=== PATIENT | female | born 1970 | race Caucasian/White ===

== ENCOUNTER 2018-12-10 08:46 | Day surgery (SDC) | payer BC ==
[2018-12-10] MEDS ORDERED: DIPRIVAN 200 MG/20 ML IV ONE (08:47)
[2018-12-10] MEDS ORDERED: TETRACAINE 0.5% STERI-UNIT SOL OP ONE ×2 (09:00)
[2018-12-10] MEDS ORDERED: Ak-Dilate OPHTHALMIC*** 1.065 ML, Cyclogyl 1% OPHTH SOL 5 ML 1.065 ML, GATIFLOXACIN 0.5... OP ONE ×4 (09:00)
[2018-12-10] MEDS ORDERED: BETADINE 5% OPHTHALMIC 30 ML OP ONE (09:00)
[2018-12-10] MEDS ORDERED: LIDOCAINE HCL 1% AMPUL 5 ML IJ ONE (09:00)
[2018-12-10] MEDS ORDERED: Epinephrine Preservative Free 1 MG/ML INTRAOP ONE (09:00)
[2018-12-10] MEDS ORDERED: BSS 500 ML, Fortaz/Tazicef 1 GM** 0.2 G IO ONE ×2 (09:00)
[2018-12-10] MEDS ORDERED: Lactated Ringers 1,000 ML IV SCH ×2 (09:00→09:30)
[2018-12-10] MEDS ORDERED: ACETAZOLAMIDE 250 MG TABLET PO ONE (09:15)
[2018-12-10] MEDS ORDERED: Zofran 4 MG/2 ML VIAL IV PRN (09:15)
[2018-12-10] MEDS ORDERED: Lactated Ringers 1,000 ML IV ONE (09:22)
[2018-12-10] MEDS ORDERED: TYLENOL 325 MG PO STA (12:36)
[2018-12-10] MEDS ORDERED: TYLENOL 325 MG ONE (12:39)
[2018-12-10 13:03] VITALS: BP 144/84; PULSE 57; O2SAT 94
--- NOTE | 2018-12-10 13:55 | OP ---
DATE/TIME OF OPERATION: 12/10/2018 1151 TIME DICTATED: 1241 PREOPERATIVE DIAGNOSIS: Senile cataract of left eye. POSTOPERATIVE DIAGNOSIS: Senile cataract of left eye. SURGEON: Shadi Gutierrez MD SOLDER TECHNICIAN: None. OPERATION: Cataract extraction of left eye with an intraocular lens implant. STANDARD __X___ COMPLEX ANESTHESIA: MAC. 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 The anesthesiologist or the nurse hydraulic assembler was utilized to monitor and regulate the intravenous sedation of the patient, so the patient was cooperative, relaxed, and comfortable). Topical anesthesia using Tetracaine eye drops together with intra cameral anesthesia using Lidocaine 1% MPF. The nurse was utilized to monitor the patient. ANESTHESIA PROVIDER: Steve Sterling CRNA. COMPLICATIONS: None. BLOOD LOSS: None. INDICATIONS: The patient is undergoing cataract surgery in the hopes of eliminating the visual complaints and difficulty. PROCEDURE: After arriving at the facility's outpatient surgery area, an IV was started; the patient was given 5 mg of p.o. Versed. (If an anesthesia provider was not monitoring the patient) The patient was then given topical anesthetic Tetracaine eye drops. A cotton pellet was soaked into a solution of a combination of Zymaxid 0.5%, Candelario-Synephrine 2.5% and Ocufen (other drops might have been substituted referenced in the patient's record). The pellet was inserted by the RN into the lower conjunctival cul-de-sac with a sterile forceps and left for 20 minutes. The pellet was then removed by the RN with a sterile forceps before taking the patient to the operating room. The preoperative area nurse identified the patient and marked the correct eye to be operated on. I identified the correct eye to be operated on and marked it appropriately in the outpatient surgery area. The patient was then taken into the operating room. Tetracaine eye drops were installed again in the correct eye. The eyelids and the lashes and the lid margins were scrubbed with Betadine solution. One drop of the diluted Betadine solution was placed in the conjunctival cul-de-sac for 45 seconds and then was irrigated. A drop of Tetracaine Gel was placed in the conjunctival cul-de-sac. The patient's forehead was taped to secure it during the procedure. The patient was monitored. The patient was then draped in the usual way for this procedure. An eye speculum was used to separate the eyelids. The eye was then fixated and a temporal 2.5 mm incision was made in the clear cornea temporally at the limbus. Through the incision, 0.25 cc of 1% non-preserved lidocaine was injected into the anterior chamber for intracameral anesthesia. The anterior chamber was then filled with viscoelastic. The pupil was small. I felt that it would be safer to mechanically dilate the pupil. A Malyugin ring was used at this point which dilated the pupil. That was removed at the end of the procedure prior to aspiration of the viscoelastic from the anterior chamber and posterior to the intraocular lens implant. The cataract had a great amount of cortical changes. That rendered seeing the anterior capsule difficult for a safe performance of an anterior capsulotomy. I injected an air bubble into the anterior chamber. I then injected 1 ML of vision blue solution into the anterior chamber. The vision blue solution was irrigated from the anterior chamber after 30 seconds. The anterior capsule was stained which facilitated performing the anterior capsulotomy safely. After that was completed, a cystotome was introduced into the anterior chamber and a round anterior capsulotomy was performed. The capsule was removed by a forceps. Hydrodissection was next carried utilizing a 25-gauge cannula and balanced salt solution to delineate the cortical material from the capsule and the nucleus from the cortical material. The nucleus was rotated freely into the capsular bag with no difficulty. The phaco tip of the [employer] Phacoemulsifier was introduced into the anterior chamber and two grooves were made into the nucleus 90 degrees apart. Using two spatulas resulted into the nucleus being fractured into four quadrants. The phaco tip was then used to remove each quadrant of the nucleus. Viscoelastic was used during this process to protect the corneal endothelium. Once the entire nucleus was removed, the phaco tip then was removed and the irrigation tip was introduced into the eye and the cortex was removed. The posterior capsule was polished. It was noticed that there was a tear into the posterior capsule with few vitreous strands into the pupil plan. An anterior vitrectomy was performed. A 14.50 diopter, [id number], posterior chamber lens implant, was inspected and found to be grossly normal. The implant was inserted into the implant injector cartridge; Viscoelastic again was introduced into the anterior chamber, which filled the capsular bag. The implant injector's cartridge tip was placed at the limbal wound and the posterior chamber implant was released into the capsular bag and rotated appropriately. The implant was found to be into the capsular bag and it was centered. 0.2 ml of Tri-Moxi was introduced via 27 gauge cannula into the vitreous cavity through the ciliary processes. Viscoelastic was aspirated from the anterior chamber and posterior to the intraocular lens implant from the capsular bag using the irrigating tip. The anterior chamber was irrigated and filled with 5 cc antibiotic solution (500 cc of BSS plus 2 ml of Fortaz 100 mg/ml) ( if patient was not allergic to the medication). The lips of the corneal incision were hydrated using BSS solution. The anterior chamber was checked and found to be water tight. ___X___ One drop each of antibiotic, steroid and NSAID drops (refer to chart for drops used) were placed in the conjunctival cul-de-sac of the operated eye. Patient tolerated the procedure quite well and left the operating room in satisfactory condition. DISCHARGE SUMMARY: The patient was released in stable condition. The patient and those with the patient were given an instruction sheet as of how to care for the eye after surgery as well as counseling on any abnormal laboratory studies by the postoperative RN. The patient was also given an appointment card for follow-up in the office and is to call immediately for any difficulties including but not limited to pain in the eye, decreased vision, discharge from the eye, headache and or fever. DISCHARGE DIAGNOSIS: Pseudophakia of left eye.
== END 2018-12-10 13:05 | disposition home or self-care (01) ==
LOC: SDC 08:46
PROVIDERS: ATTEND Ophthalmology
DX: H25.812 Combined forms of age-related cataract, left eye (principal)
CPT/HCPCS: C1780; J0171; J2704; A9270-GY

== ENCOUNTER 2022-05-01 21:15 | Emergency (ER) | payer BC ==
[2022-05-01 21:19] VITALS: BP 156/102; PULSE 104; O2SAT 96
--- NOTE | 2022-05-01 21:19 | ERPHSYRPT ---
- History of Present Illness Time Seen by Provider: 05/01/22 21:19 Source: patient Exam Limitations: no limitations Physician History: This is a 52-year-old white female who wears a right eye disposable contact. She takes them out every night and did so last night. This morning, prior to putting her contact in her right eye, she did feel as though the eye was dry and scratchy. However, after placing some antibiotic ointment and irrigating out her right eyes she put a new contact in. It became more irritating and therefore she took the contact out. She presents without a contact in place. She does have some redness of the right eye. He does not improved throughout the day. Timing/Duration: today Location: right eye Severity: mild (Moderate) Apparent Injury: yes Associated Symptoms: burning, itching, sensitivity to light, redness, foreign body sensation Visual Assistive Devices: Contacts Allergies/Adverse Reactions: latex Allergy (Intermediate, Verified 05/01/22 21:26) Rash adhesive tape Allergy (Mild, Verified 05/01/22 21:26) Rash Opioids - Morphine Analogues Adverse Reaction (Severe, Verified 05/01/22 21:26) Travel Risk - International Travel Have you traveled outside of the country in past 3 weeks: No - Coronavirus Screening Are you exhibiting any of the following symptoms?: No Close contact with a COVID-19 positive Pt in past 14-21 Days: No - Review of Systems Constitutional: No Symptoms Eyes: Eye Pain (Burning type), Eye Redness, Foreign Body Sensation Ears, Nose, & Throat: No Symptoms Respiratory: No Symptoms Cardiac: No Symptoms Abdominal/Gastrointestinal: No Symptoms Genitourinary Symptoms: No Symptoms Musculoskeletal: No Symptoms Skin: No Symptoms Neurological: No Symptoms Psychological: No Symptoms Endocrine: No Symptoms Hematologic/Lymphatic: No Symptoms Immunological/Allergic: No Symptoms All Other Systems: Reviewed and Negative - Past Medical History Pertinent Past Medical History: No Neurological History: No Pertinent History ENT History: Cataracts Cardiac History: No Pertinent History Respiratory History: No Pertinent History Endocrine Medical History: No Pertinent History Musculoskeletal History: Degenerative Disk Disease, Other GI Medical History: No Pertinent History History: No Pertinent History Psycho-Social History: No Pertinent History Female Reproductive Disorders: Menstrual Problems - Past Surgical History Past Surgical History: Yes Neuro Surgical History: No Pertinent History Cardiac: No Pertinent History Respiratory: No Pertinent History Gastrointestinal: No Pertinent History Genitourinary: No Pertinent History Musculoskeletal: No Pertinent History Female Surgical History: Tubal Ligation, Other Other Surgical History: ablation - Social History Smoking Status: Current every day smoker How long have you smoked: 30 Exposure to second hand smoke: No Drug Use: none - Nursing Vital Signs Nursing Vital Signs: Initial Vital Signs Temperature 98.5 F 05/01/22 21:17 Pulse Rate 104 H 05/01/22 21:17 Respiratory Rate 18 05/01/22 21:17 Blood Pressure 156/102 05/01/22 21:17 O2 Sat by Pulse Oximetry 96 05/01/22 21:17 Pain Scale Pain Intensity 6 - Physical Exam General Appearance: no apparent distress, alert, anxiety Vision Acuity Degree Evaluation Phase: Uncorrected Vision Acuity Right Eye: 20/200 Vision Acuity Left Eye: 20/20 Eye Exam: right eye: conjunctival inflammation, corneal abrasion, left eye: normal inspection, bilateral eye: PERRL, EOMI Ears, Nose, Throat Exam: normal ENT inspection, moist mucous membranes Neck Exam: normal inspection, non-tender, supple, full range of motion Respiratory Exam: airway intact, No chest tenderness, No respiratory distress Gastrointestinal Exam: No tenderness Extremity Exam: normal inspection, normal range of motion, pelvis stable Neurologic: alert, oriented x 3, cooperative, 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 as tested, normal mood/affect, nml cerebellar function, nml station & gait, sensation nml Skin Exam: normal color, warm, dry Lymphatic: No adenopathy SpO2 Interpretation: normal SpO2: 96 O2 Delivery: Room Air Procedures - Eye Procedure Time of Procedure: 21:30 (Fluorescein test) Tetracaine Drops Administered: Yes Remaining Material after FB Removal: none Antibiotic Oinment/Drps Admin: right eye - Course Nursing assessment & vital signs reviewed: Yes Ordered Tests: Active Orders 24 hr Category Date Time Status Visual Acuity STAT Care 05/01/22 21:18 Active Medication Summary Discontinued Medications Generic Name Dose Route Start Last Admin Trade Name Geeta PRN Reason Stop Dose Admin Eye Irrigation Solution 15 ml 05/01/22 21:23 05/01/22 21:30 Sodium/Potassium/Arnol/Magnesium 30 Ml Eye Wash OP 05/01/22 21:24 15 ml STAT ONE Administration Eye Irrigation Solution Confirm 05/01/22 21:24 Sodium/Potassium/Arnol/Magnesium 30 Ml Eye Wash Administered 05/01/22 21:25 Dose 30 ml .ROUTE .STK-MED ONE Fluorescein Sodium 1 mg 05/01/22 21:22 05/01/22 21:29 Fluorescein Sodium 1 Mg/Strip Strip OP 05/01/22 21:23 1 mg STAT ONE Administration Fluorescein Sodium Confirm 05/01/22 21:24 Fluorescein Sodium 1 Mg/Strip Strip Administered 05/01/22 21:25 Dose 1 mg OP .STK-MED ONE Tetracaine HCl 4 ml 05/01/22 21:22 05/01/22 21:28 Tetracaine Hcl/Pf 4 Ml Bottle OP 05/01/22 21:23 4 ml STAT STA Administration Tetracaine HCl Confirm 05/01/22 21:23 Tetracaine Hcl/Pf 4 Ml Bottle Administered 05/01/22 21:24 Dose 4 ml OP .STK-MED ONE - Progress Progress: improved, pain not gone completely Counseled pt/family regarding: diagnosis, need for follow-up - Departure Departure Disposition: Home Clinical Impression: Corneal abrasion Condition: Stable Critical Care Time: No Additional Instructions: Use eyedrops in the right eye as prescribed. Do not put your contact in the right eye until you have no pain whatsoever and you have used the antibiotics for at least 3 days. Follow-up with triage nurse (names and phone numbers provided). Prescriptions: Neomycin/Polymyxin B/Dexametha [Eurjyb-Lwzcl-Xrlomfpz Eye Drop] 2 drops OP QID #5 ml
[2022-05-01] MEDS ORDERED: TETRACAINE 0.5% STERI-UNIT SOL OP STA (21:22)
[2022-05-01] MEDS ORDERED: Fluor-I-Strip/Ful-Flo OP ONE ×2 (21:22→21:24)
[2022-05-01] MEDS ORDERED: Eye-Stream Solution OP ONE (21:23)
[2022-05-01] MEDS ORDERED: TETRACAINE 0.5% STERI-UNIT SOL OP ONE (21:23)
[2022-05-01] MEDS ORDERED: Eye-Stream Solution ONE (21:24)
[2022-05-01] MEDS ORDERED: NEOSPORIN OPTH ONE (21:48)
[2022-05-01] MEDS ORDERED: Cortisporin Eye Drops OP ONE (21:52)
[2022-05-01] MEDS ORDERED: Cortisporin Eye Drops OP SCH (22:00)
== END 2022-05-01 22:00 | disposition home or self-care (01) ==
LOC: ED 21:15
DX: S05.01XA Injury of conjunctiva and corneal abrasion without foreign body, right eye, initial encounter (principal); H57.11 Ocular pain, right eye; Z72.0 Tobacco use
CPT/HCPCS: 99281; A9270-GY

== ENCOUNTER 2025-05-12 06:27 | Day surgery (SDC) | payer OTHER ==
[2025-05-12] MEDS ORDERED: Lactated Ringers 1,000 ML IV ONE (07:05)
[2025-05-12] MEDS: Lactated Ringers 1,000 ML IV SCH (07:10)
[2025-05-12] MEDS: TETRACAINE 0.5% STERI-UNIT SOL OP ONE (07:27)
[2025-05-12] MEDS: Ak-Dilate OPHTHALMIC*** 0.71 ML, Cyclogyl 1% OPHTH SOL 0.71 ML, GATIFLOXACIN 0.5% OPHTH... OP SCH (07:30)
[2025-05-12] MEDS ORDERED: propofoL IV ONE (08:49)
[2025-05-12 09:14] VITALS: RESP 18
[2025-05-12] MEDS: ACETAZOLAMIDE 250 MG TABLET PO ONE (09:25)
[2025-05-12 09:27] VITALS: BP 119/92; PULSE 75; TEMP 97.2; O2SAT 95
[2025-05-12] MEDS ORDERED: TETRACAINE 0.5% STERI-UNIT SOL OP ONE (12:30)
[2025-05-12] MEDS ORDERED: DEXMEDETOMIDINE 80 MCG/20ML-NS IV NR (14:30)
[2025-05-12] MEDS ORDERED: TRIAMCINOLONE 15 MG/ML INJ INTRAOP NR (14:30)
[2025-05-12] MEDS ORDERED: BETADINE 5% OPHTHALMIC 30 ML OP NR (14:30)
[2025-05-12] MEDS ORDERED: Zofran 4 MG/2 ML VIAL IV PRN (14:30)
[2025-05-12] MEDS ORDERED: Epinephrine Preservative Free 1 MG/ML INTRAOP NR (14:30)
[2025-05-12] MEDS ORDERED: VIGAMOX/BSS 0.15% SYR IO NR (14:30)
== END 2025-05-12 09:37 | disposition home or self-care (01) ==
LOC: SDC 06:27
PROVIDERS: ATTEND Ophthalmology
DX: H25.811 Combined forms of age-related cataract, right eye (principal)